=== PATIENT | female | born 1970 | race Two or more races ===

== ENCOUNTER 2023-10-16 00:18 | Inpatient (IN) | payer OTHER ==
[2023-10-16] MEDS: ALBUTEROL SO4 2.5/IPRATROPIUM 0.5 INH SOL 3 ML VIAL.NEB. NEB ONE ×3 (01:19→11:31)
[2023-10-16] MEDS: FUROSEMIDE 40 MG/4 ML INJECTABLE VIAL IVPUSH ONE ×2 (01:19→04:29)
[2023-10-16 01:32] LABS: INR 1.32 (0.83-1.09); PROTHROMBIN TIME (PATIENT) 15.1 SEC (9.7-13.0)
[2023-10-16 01:34] LABS: ACTIVATED PTT 28.3 SECONDS (25.2-36.5)
[2023-10-16 01:35] LABS: VENOUS BASE EXCESS -4.9 mmol/L (-2-2); VENOUS O2 SATURATION 54.6 % (70-80); VENOUS PCO2 42.9 mmHg (38-52); VENOUS PH 7.31 (7.310-7.410)
[2023-10-16 01:54] LABS: POTASSIUM 4.2 mmol/L (3.5-5.1)
[2023-10-16 01:57] LABS: ALBUMIN 3.3 g/dl (3.4-5.0); BLOOD UREA NITROGEN 34.2 mg/dL (7-18)
[2023-10-16 02:00] LABS: CREATININE 1.5 mg/dL (0.55-1.3); PHOSPHOROUS 3.7 mg/dL (2.5-4.9)
[2023-10-16 02:01] LABS: BILIRUBIN,TOTAL 2.6 mg/dL (0.2-1); TOT PROT 7.6 g/dl (6.4-8.2)
[2023-10-16 02:05] LABS: N-TERMINAL BNP 4276.9 pg/ml (5-125)
[2023-10-16 02:25] LABS: EOS % 1.1 % (0-4.5); HEMATOCRIT 36.1 % (32.4-45.2); LYMPH % 11.7 % (8-40); MCH 21.2 pg (25.7-33.7); MCHC 30.5 g/dl (32.0-36.0); MEAN CELL VOLUME 69.7 fl (80-96); MEAN PLT VOLUME 8.6 fl (7.5-11.1); MONO % 6.3 % (3.8-10.2); NEUT % 79.9 % (42.8-82.8); PLATELET COUNT 359 10^3/uL (134-434); RBC 5.18 M/mm3 (3.60-5.2); RDW 23.7 % (11.6-15.6); WHITE BLOOD COUNT 7.4 K/mm3 (4.0-10.0)
[2023-10-16] MEDS ORDERED: ACETAMINOPHEN INJECTION 100 ML IVPB ONE (03:48)
[2023-10-16] MEDS ORDERED: FUROSEMIDE 40 MG/4 ML INJECTABLE VIAL ONE ×3 (03:51→19:32)
[2023-10-16] MEDS: ACETAMINOPHEN 1000 MG/100 ML BAG IVPB ONE (03:55)
[2023-10-16] MEDS ORDERED: ALBUTEROL SO4 2.5/IPRATROPIUM 0.5 INH SOL 3 ML VIAL.NEB. NEB ONE ×2 (04:29→11:15)
[2023-10-16] MEDS ORDERED: SPIRONOLACTONE 25 MG TABLET ONE (09:31)
[2023-10-16] MEDS ORDERED: SACUBITRIL/VALSARTAN 49 MG-51 MG TABLET ONE ×2 (09:31→22:42)
[2023-10-16] MEDS ORDERED: ASPIRIN 81 MG CHEWABLE TABLETS ONE (09:31)
[2023-10-16] MEDS: FUROSEMIDE 40 MG/4 ML INJECTABLE VIAL IVPUSH SCH (09:44)
[2023-10-16] MEDS: SPIRONOLACTONE 25 MG TABLET PO SCH (09:44)
[2023-10-16] MEDS: ASPIRIN 81 MG CHEWABLE TABLETS PO SCH (09:44)
[2023-10-16] MEDS: SACUBITRIL/VALSARTAN 49 MG-51 MG TABLET PO SCH (09:44)
[2023-10-16] MEDS ORDERED: METOPROLOL TARTRATE 25 MG TABLET (FP) PO SCH (10:30)
[2023-10-16] MEDS: EMPAGLIFLOZIN (JARDIANCE) 10 MG TABLET PO SCH (10:45)
[2023-10-16] MEDS ORDERED: HEPARIN NA (PORCINE) 5,000 UNITS/ML 1ML VIAL ONE ×2 (14:08→22:43)
[2023-10-16] MEDS: HEPARIN NA (PORCINE) 5,000 UNITS/ML 1ML VIAL SQ SCH (14:10)
[2023-10-17 02:48] VITALS: BMI 48.8
[2023-10-17 09:45] LABS: HEMATOCRIT 36.7 % (32.4-45.2); HEMOGLOBIN 11.3 GM/dL (10.7-15.3); MCH 21.2 pg (25.7-33.7); MCHC 30.9 g/dl (32.0-36.0); MEAN CELL VOLUME 68.5 fl (80-96); MEAN PLT VOLUME 8.9 fl (7.5-11.1); PLATELET COUNT 318 10^3/uL (134-434); RBC 5.36 M/mm3 (3.60-5.2); RDW 23.7 % (11.6-15.6); WHITE BLOOD COUNT 6.2 K/mm3 (4.0-10.0)
[2023-10-17 10:07] LABS: POTASSIUM 3.4 mmol/L (3.5-5.1)
[2023-10-17 10:10] LABS: CALCIUM 9.3 mg/dL (8.5-10.1); MAGNESIUM 1.8 mg/dL (1.8-2.4)
[2023-10-17 10:11] LABS: BLOOD UREA NITROGEN 21.7 mg/dL (7-18)
[2023-10-17 10:13] LABS: PHOSPHOROUS 3.5 mg/dL (2.5-4.9)
[2023-10-17 10:17] LABS: CREATININE 1.1 mg/dL (0.55-1.3)
[2023-10-17] MEDS: CARVEDILOL 12.5 MG TABLET (FP) PO SCH (12:20)
[2023-10-17] MEDS: POTASSIUM CHLORIDE ORAL LIQUID 20 MEQ/15 ML PO ONE (14:26)
[2023-10-18 07:25] LABS: HEMOGLOBIN 11.3 GM/dL (10.7-15.3); MCHC 30.4 g/dl (32.0-36.0); MEAN CELL VOLUME 69.1 fl (80-96); MEAN PLT VOLUME 8.8 fl (7.5-11.1); PLATELET COUNT 286 10^3/uL (134-434); RBC 5.36 M/mm3 (3.60-5.2); RDW 23.5 % (11.6-15.6); WHITE BLOOD COUNT 4.5 K/mm3 (4.0-10.0)
[2023-10-18 07:49] LABS: POTASSIUM 3.6 mmol/L (3.5-5.1)
[2023-10-18 08:08] LABS: ALBUMIN 2.8 g/dl (3.4-5.0); BLOOD UREA NITROGEN 21.2 mg/dL (7-18); CALCIUM 8.7 mg/dL (8.5-10.1)
[2023-10-18 08:09] LABS: MAGNESIUM 1.8 mg/dL (1.8-2.4)
[2023-10-18 08:11] LABS: CREATININE 1.1 mg/dL (0.55-1.3); PHOSPHOROUS 3.9 mg/dL (2.5-4.9)
[2023-10-18 08:13] LABS: BILIRUBIN,TOTAL 2.1 mg/dL (0.2-1); TOT PROT 6.8 g/dl (6.4-8.2)
[2023-10-18] MEDS: POTASSIUM CHLORIDE ORAL LIQUID 20 MEQ/15 ML PO ONE (10:06)
[2023-10-18] MEDS: ATORVASTATIN CA 40 MG TABLET (FP) PO SCH (21:49)
[2023-10-19 06:54] VITALS: PULSE 80
[2023-10-19 07:19] LABS: HEMATOCRIT 38.7 % (32.4-45.2); HEMOGLOBIN 11.6 GM/dL (10.7-15.3); MCH 20.8 pg (25.7-33.7); MEAN CELL VOLUME 69.3 fl (80-96); PLATELET COUNT 319 10^3/uL (134-434); RBC 5.58 M/mm3 (3.60-5.2); RDW 23.7 % (11.6-15.6); WHITE BLOOD COUNT 4.7 K/mm3 (4.0-10.0)
[2023-10-19 07:34] LABS: POTASSIUM 3.9 mmol/L (3.5-5.1)
[2023-10-19 07:43] LABS: BLOOD UREA NITROGEN 22.3 mg/dL (7-18); CALCIUM 8.6 mg/dL (8.5-10.1); MAGNESIUM 1.9 mg/dL (1.8-2.4)
[2023-10-19 07:47] LABS: CREATININE 1.1 mg/dL (0.55-1.3); PHOSPHOROUS 3.9 mg/dL (2.5-4.9)
[2023-10-19] MEDS: POTASSIUM CHLORIDE ORAL LIQUID 20 MEQ/15 ML PO ONE (10:14)
[2023-10-19 12:25] VITALS: BP 141/84; RESP 16; TEMP 98.1
== END 2023-10-19 12:41 | disposition home or self-care (01) | DRG 199 ==
LOC: JER 00:18 → JERBED 03:30 → J4W 23:50
PROVIDERS: ADMIT Internal Medicine; ATTEND Internal Medicine
DX: I13.10 Hypertensive heart and chronic kidney disease without heart failure, with stage 1 through stage 4 chronic kidney disease, or unspecified chronic kidney disease (principal); I21.A1 Myocardial infarction type 2; I44.1 Atrioventricular block, second degree; J96.01 Acute respiratory failure with hypoxia; I50.23 Acute on chronic systolic (congestive) heart failure; N17.9 Acute kidney failure, unspecified; I42.8 Other cardiomyopathies; E66.9 Obesity, unspecified; E87.6 Hypokalemia; R73.03 Prediabetes; Z68.42 Body mass index [BMI] 45.0-49.9, adult
CPT/HCPCS: 36415; 70450-TC; 71045-TC-FY; 80048; 80053; 82550; 82553; 82803; 83036; 83735; 83880; 84100; 84484; 85025; 85027; 85610; 85730; 93005; 93010; 93306-TC; 94761; 99285-25; J0131; J1644

== ENCOUNTER 2024-01-16 13:09 | Observation (INO) | payer OTHER ==
[2024-01-16] MEDS ORDERED: FUROSEMIDE 40 MG/4 ML INJECTABLE VIAL ONE (14:48)
[2024-01-16 14:58] LABS: EOS % 2.3 % (0-4.5); EPI CELLS >36 /uL (0-25.1); HEMATOCRIT 36.8 % (32.4-45.2); HEMOGLOBIN 11.4 GM/dL (10.7-15.3); HYALINE CASTS 33 /uL (0-3.1); LYMPH % 13.1 % (8-40); MCH 22.9 pg (25.7-33.7); MCHC 30.9 g/dl (32.0-36.0); MEAN PLT VOLUME 8.9 fl (7.5-11.1); MONO % 7.1 % (3.8-10.2); NEUT % 76.5 % (42.8-82.8); PH,URINE 5.5 (5.0-8.0); PLATELET COUNT 321 10^3/uL (134-434); RBC 4.97 M/mm3 (3.60-5.2); RDW 24.9 % (11.6-15.6); URINE APPEARANCE TURBID; URINE BACTERIA 8703 /uL (0-1359); URINE BILIRUBIN 2+ (NEGATIVE); URINE COLOR DK YELLOW; URINE GLUCOSE (UA) NEGATIVE (NEGATIVE); URINE KETONE TRACE (NEGATIVE); URINE LEUK ESTERASE 2+ (NEGATIVE); URINE NITRITE POSITIVE (NEGATIVE); URINE PROTEIN 3+ (NEGATIVE); URINE RBC 14 /uL (0-23.9); URINE WBC 458 /uL (0-25.8); WHITE BLOOD COUNT 6.9 K/mm3 (4.0-10.0)
[2024-01-16] MEDS: FUROSEMIDE 100 MG/10 ML INJECTABLE VIAL IVPB ONE (15:04)
[2024-01-16 15:13] LABS: POTASSIUM 4.8 mmol/L (3.5-5.1)
[2024-01-16 15:14] LABS: CALCIUM 9.5 mg/dL (8.5-10.1)
[2024-01-16 15:15] LABS: ALBUMIN 3.3 g/dl (3.4-5.0); BLOOD UREA NITROGEN 31.8 mg/dL (7-18)
[2024-01-16 15:18] LABS: CREATININE 1.5 mg/dL (0.55-1.3)
[2024-01-16 15:19] LABS: BILIRUBIN,TOTAL 3.4 mg/dL (0.2-1); TOT PROT 7.7 g/dl (6.4-8.2)
[2024-01-16 15:21] LABS: ANISOCYTOSIS 2+; MACROCYTOSIS 0; OVALOCYTE 1+
[2024-01-16 15:23] LABS: N-TERMINAL BNP 5075.2 pg/ml (5-125)
[2024-01-16 16:09] LABS: HIV INTERPRETATION NEGATIVE (NEGATIVE)
[2024-01-16] MEDS ORDERED: CEFTRIAXONE 1 GM/50 ML BAG ONE (16:42)
[2024-01-16] MEDS: CEFTRIAXONE 1 GM in DEXTROSE 5%-WATER - 100 ML IVPB ONE (16:43)
[2024-01-16 18:37] LABS: BILIRUBIN,DIRECT 1.1 mg/dL (0.0-0.2)
[2024-01-16] MEDS ORDERED: CARVEDILOL 6.25 MG TABLET (FP) ONE (21:06)
[2024-01-16] MEDS ORDERED: INSULIN ASPART SLIDING SCALE (NOVOLOG) 1 VIAL SQ ONE (21:08)
[2024-01-16] MEDS: CARVEDILOL 6.25 MG TABLET (FP) PO SCH (21:10)
[2024-01-16] MEDS: INSULIN ASPART SLIDING SCALE (NOVOLOG) 1 VIAL SQ SCH (21:12)
[2024-01-17 00:41] VITALS: BMI 46.6
[2024-01-17 07:27] LABS: HEMATOCRIT 34.5 % (32.4-45.2); HEMOGLOBIN 10.8 GM/dL (10.7-15.3); MCH 23.1 pg (25.7-33.7); MCHC 31.2 g/dl (32.0-36.0); MEAN CELL VOLUME 73.9 fl (80-96); MEAN PLT VOLUME 9.3 fl (7.5-11.1); PLATELET COUNT 309 10^3/uL (134-434); RBC 4.67 M/mm3 (3.60-5.2); RDW 24.5 % (11.6-15.6); WHITE BLOOD COUNT 6.1 K/mm3 (4.0-10.0)
[2024-01-17 07:42] LABS: POTASSIUM 4.7 mmol/L (3.5-5.1)
[2024-01-17 07:51] LABS: ALBUMIN 3.2 g/dl (3.4-5.0); CALCIUM 9.4 mg/dL (8.5-10.1)
[2024-01-17 07:52] LABS: BLOOD UREA NITROGEN 39.7 mg/dL (7-18); MAGNESIUM 2.2 mg/dL (1.8-2.4)
[2024-01-17 07:54] LABS: CREATININE 1.8 mg/dL (0.55-1.3); PHOSPHOROUS 4.8 mg/dL (2.5-4.9)
[2024-01-17 07:55] LABS: BILIRUBIN,TOTAL 3.2 mg/dL (0.2-1); TOT PROT 7.4 g/dl (6.4-8.2)
[2024-01-17] MEDS: FUROSEMIDE 40 MG/4 ML INJECTABLE VIAL IVPUSH SCH (10:35)
[2024-01-17] MEDS: ENOXAPARIN NA (PORCINE) 40 MG/0.4 ML DISP.SYRIN SQ SCH (10:37)
[2024-01-17] MEDS: CEFTRIAXONE 1 GM in DEXTROSE 5%-WATER - 50 ML IVPB SCH (10:37)
[2024-01-17] MEDS: SODIUM CHLORIDE 250 ML IV STA (16:45)
[2024-01-17 21:45] VITALS: RESP 17
[2024-01-18 06:09] VITALS: BP 154/92; PULSE 77; TEMP 98.2
[2024-01-18] MEDS ORDERED: INSULIN ASPART SLIDING SCALE (NOVOLOG) 1 VIAL SQ ONE (06:52)
[2024-01-18 07:37] LABS: POTASSIUM 4.4 mmol/L (3.5-5.1)
[2024-01-18 07:42] LABS: BLOOD UREA NITROGEN 45.4 mg/dL (7-18)
[2024-01-18 07:44] LABS: CREATININE 1.7 mg/dL (0.55-1.3)
[2024-01-18 07:47] LABS: BILIRUBIN,TOTAL 1.9 mg/dL (0.2-1); TOT PROT 7.1 g/dl (6.4-8.2)
== END 2024-01-18 14:17 | disposition home or self-care (01) ==
LOC: JER 13:09 → JERBED 16:14 → J4S 21:56
PROVIDERS: ADMIT Internal Medicine; ATTEND Internal Medicine
PROC: 3E03329 Introduction of Other Anti-infective into Peripheral Vein, Percutaneous Approach (ICD-10-PCS; principal; 2024-01-16)
PROC: 3E033GC Introduction of Other Therapeutic Substance into Peripheral Vein, Percutaneous Approach (ICD-10-PCS; 2024-01-16)
PROC: 3E013VG Introduction of Insulin into Subcutaneous Tissue, Percutaneous Approach (ICD-10-PCS; 2024-01-16)
DX: I50.33 Acute on chronic diastolic (congestive) heart failure (principal); N17.9 Acute kidney failure, unspecified; E11.9 Type 2 diabetes mellitus without complications; F14.90 Cocaine use, unspecified, uncomplicated; E80.6 Other disorders of bilirubin metabolism; E66.9 Obesity, unspecified
CPT/HCPCS: 0241U-QW; 36415; 71045-TC-FY; 76705-TC; 80053; 81003; 82248; 82962; 83036; 83735; 83880; 84100; 84484; 85025; 85027; 87086; 87186; 87389; 93005; 93010; 96361; 96365; 96366; 96372; 96375; 99285-25; G0378